=== PATIENT | female | born 1950 ===

== ENCOUNTER 2020-05-28 18:44 | Inpatient (IN) | payer MEDICARE, MEDICAID ==
[~2020-05-28] VITALS: Ht 157.5 cm; Wt 63.5 kg
[2020-05-29 01:05] VITALS: BP 125/60; BMI 25.6
--- NOTE | 2020-05-29 02:52 | NUR ---
SLEEPING WITH RESPIRATIONS UNLABORED. NO DISTRESS NOTED.
[2020-05-29] MEDS ORDERED: TEMAZEPAM30 MG PO (02:59)
[2020-05-29] MEDS ORDERED: INDERAL LA80 MG PO (03:03)
[2020-05-29] MEDS ORDERED: PROAIR HFA8.5 G1 INH (03:05)
[2020-05-29] MEDS ORDERED: NEURONTIN600 MG PO (03:06)
[2020-05-29] MEDS ORDERED: PROTONIX20 MG PO (03:08)
[2020-05-29] MEDS ORDERED: DULERA 200 MCG8.8 GM INH (03:11)
[2020-05-29] MEDS ORDERED: OXYCONTIN10 MG PO (03:12)
[2020-05-29] MEDS ORDERED: VALIUM5 MG PO (03:14)
[2020-05-29] MEDS ORDERED: TRELEGY ELLIPT1 EACH INH (03:15)
[2020-05-29] MEDS ORDERED: DULCOLAX STOOL100 MG PO (03:15)
[2020-05-29] MEDS ORDERED: NORVASC10 MG PO (03:17)
[2020-05-29] MEDS ORDERED: MIRALAX17 GM PO (03:18)
[2020-05-29] MEDS ORDERED: [UNRECOGNIZED DRUG - OTHER] INH (03:19)
[2020-05-29] MEDS ORDERED: PROVENTIL/2.5 MG/3 M INH (03:20)
--- NOTE | 2020-05-29 05:20 | NUR ---
QUIET HOURS. RESTED WELL. RESPIRATIIONS UNLABORED. NO DISTRESS NOTED. OMARI PATENT. CALL LIGHT IN REACH.
[2020-05-29 06:05] LABS: BILIRUBIN NEGATIVE (NEGATIVE); GLUCOSE NEGATIVE (NEGATIVE); KETONE NEGATIVE (NEGATIVE); NITRITE POSITIVE (NEGATIVE); UROBILINOGEN NORMAL (NORMAL)
[2020-05-29 06:07] LABS: CALC OSMOLALITY 279 mosm/kg (275-300); CALCIUM 8.1 mg/dL (8.5-10.1); CARBON DIOXIDE 29.4 mmol/L (21.0-32.0); CHLORIDE - SERUM 107 mmol/L (98-107); CREATININE - SERUM 0.6 mg/dL (0.6-1.3); GLUCOSE 112 mg/dL (74-106); POTASSIUM - SERUM 3.4 mmol/L (3.5-5.1); SODIUM 139 mmol/L (136-145); UREA NITROGEN 15 mg/dL (7-18); eGFR NON AFRICAN AMERICAN > 90 mL/min (90-120)
[2020-05-29 06:07] LABS: BACTERIA MODERATE /hpf (NEGATIVE); EPITHELIAL CELLS 0-5 /hpf (0-5); RED CELLS - URINE 0-5 /hpf (0-5); WHITE CELLS - URINE 0-5 /hpf (NEGATIVE)
[2020-05-29 06:49] LABS: HEMATOCRIT 23.3 % (36.0-48.0); HEMOGLOBIN 7.6 g/dL (12-16); LYMPHOCYTES 44.2 % (15-50); MCH 31.8 pg (26.0-34.0); MCHC 32.6 g/dL (31.0-37.0); MCV 97.5 fL (80.0-100.0); MEAN PLATELET VOLUME 8.9 fL (7.4-10.4); PLATELET COUNT 393 10x3/uL (130-400); RBC 2.39 10x6/uL (4.00-5.40); RDW 16.5 % (11.5-14.5); WBC 6.4 10x3/uL (4.8-10.8)
--- NOTE | 2020-05-29 07:20 | NUR ---
RESTING WITH EYES CLOSED. RESP EVEN AND UNLABORED WITH NO DISTRESS NOTED. OPENS EYES TO NAME AND IS A/OX3. DENIES ANY PAIN AND NO REQUESTS VOICED. SIDERAILS UP X 2, CALL LIGHT AND FLUIDS IN REACH, BED IN LOW LOCKED POSITION. SALCIDO PATENT AND DRAINING SLIGHTLY CLOUDY YELLOW URINE.
--- NOTE | 2020-05-29 07:31 | NUR ---
A/A/OX4. ASSISTED TO BATHROOM VIA W/C AND TOLERATED WELL. REMAINS UP IN W/C FOR BREAKFAST. NO APPARENT NEW PROBLEMS. CALL LIGHT AND FLUIDS PLACED IN REACH. NO REQUESTS VOICED AND DENIES ANY PAIN. RESP EVEN AND UNLABORED ON RA WITH NO DISTRESS NOTED.
[2020-05-29 09:12] VITALS: BP 105/52
--- NOTE | 2020-05-29 14:40 | NUR ---
WHEN PT WAS ASSISTED TO STANDING POSITION AT SIDE OF BED, HAD LARGE STOOL INCONTINENT AND PT WAS UNAWARE OF THIS. HAS NO SENSATION OF NEEDING TO PASS STOOL.
--- NOTE | 2020-05-29 15:20 | NUR ---
RESTING WITH EYES CLOSED. OPENS EYES TO NAME. DENIES ANY PAIN AT THIS TIME AND NO REQUESTS VOICED. SIDERAILS UP X 2, CALL LIGHT AND FLUIDS IN REACH, BED IN LOW LOCKED POSITION. SALCIDO PATENT AND DRAINING LIGHT YELLOW SLIGHTLY CLOUDY URINE.
[2020-05-29 16:30] VITALS: Ht 157.5 cm; Wt 63.5 kg
--- NOTE | 2020-05-29 19:45 | NUR ---
PATIENT RECEIVED SITTING UP IN BED. ASSESSMENT & VITAL SIGNS DONE. NO C/O PAIN OR DISTRESS. BED LOW. ALARM ON. CALL LIGHT WITHIN REACH. WILL CONTINUE TO MONITOR.
[2020-05-29 20:08] VITALS: BP 95/54
[2020-05-29 22:45] VITALS: BP 117/68
--- NOTE | 2020-05-30 00:35 | NUR ---
PATIENT EYES CLOSED. RESPIRATIONS 18 & EVEN. SALCIDO PATENT WITH YELLOW COLOR URINE. BED LOW. ALARM ON. CALL [facility] WITHIN REAACH. WILL CONTINUE TO MONITOR.
--- NOTE | 2020-05-30 03:44 | NUR ---
PATIENT EYES CLOSED. RESPIRATIONS 18 & EVEN. BED LOW. ALARM ON. CALL LIGHT WITHIN REACH. WILL CONTINUE TO MONITOR.
--- NOTE | 2020-05-30 08:15 | NUR ---
SITTING UP IN BED EATING BREAKFAST, DENIES ANY NEEDS AT THIS TIME, C/L AND FLUIDS IN REACH.
[2020-05-30 08:18] VITALS: BP 97/57
--- NOTE | 2020-05-30 12:00 | NUR ---
UP IN W/C EATING LUNCH, DENIES ANY NEEDS AT THIS TIME, C/L AND FLUIDS IN REACH.
--- NOTE | 2020-05-30 16:30 | NUR ---
RESTING IN BED, BARBRA CARE AND SALCIDO CARE GIVEN, DRESSING ON BACK CHANGED, NITHYA INTACT, NO S/S OF INFECTION NOTED, STAT LOCK FOR SALCIDO CHANGED, DENIES ANY OTHER NEEDS AT THIS TIME, C/L AND FLUIDS IN REACH.
[2020-05-30 19:25] VITALS: BP 126/69
--- NOTE | 2020-05-30 19:30 | NUR ---
PATIENT RECEIVED SITTING UP IN BED. SON AT BEDSIDE. ASSESSMENT & VITAL SIGNS DONE. NO C/O PAIN OR DISTRESS. BED LOW. ALARM ON. CALL LIGHT WITHIN REACH. WILL CONTINUE TO MONITOR.
--- NOTE | 2020-05-31 00:04 | NUR ---
I have reviewed this patient and I concur with the Shift Assessment completed by the Licensed Practical Nurse today this shift.
--- NOTE | 2020-05-31 06:12 | NUR ---
PATIENT HAD 1800 CLEAR YELLOW URINE OUTPUT IN SALCIDO. PADS CLEAN & DRY. BED LOW. CALL LIGHT WITHIN REACH. WILL CONTINUE TO MONITOR.
--- NOTE | 2020-05-31 08:06 | NUR ---
SITTING UP IN BED EATING BREAKFAST, PRN PAIN MED GIVEN, DENIES ANY OTHER NEEDS AT THIS TIME, C/L AND FLUIDS IN REACH.
--- NOTE | 2020-05-31 12:16 | NUR ---
SITTING UP IN BED EATING LUNCH, SON IN ROOM, DENIES ANY NEEDS AT THIS TIME, C/L AND FLUIDS IN REACH.
--- NOTE | 2020-05-31 15:59 | NUR ---
RESTING IN BED WITH EYES CLOSED, RESP EVEN AND UNLABORED, NO S/S OF DISTRESS NOTED, C/L AND FLUIDS IN REACH.
--- NOTE | 2020-05-31 17:16 | NUR ---
I have reviewed this patient and I concur with the Shift Assessment completed by the Licensed Practical Nurse today this shift.
[2020-05-31 19:24] VITALS: BP 97/51
--- NOTE | 2020-06-01 03:01 | NUR ---
I have reviewed this patient and I concur with the Shift Assessment completed by the Licensed Practical Nurse today this shift.
[2020-06-01 05:48] LABS: BASOPHILS 0.2 % (0-2); EOSINOPHILS 3.5 % (0-7); HEMATOCRIT 23.9 % (36.0-48.0); HEMOGLOBIN 7.6 g/dL (12-16); IMMATURE GRANULOCYTES 0.9 % (0-5); LYMPHOCYTES 37.8 % (15-50); MCHC 31.8 g/dL (31.0-37.0); MCV 97.6 fL (80.0-100.0); MEAN PLATELET VOLUME 8.7 fL (7.4-10.4); MONOCYTES 9.9 % (2-11); NEUTROPHILS 47.7 % (40-80); PLATELET COUNT 336 10x3/uL (130-400); RBC 2.45 10x6/uL (4.00-5.40); RDW 16.2 % (11.5-14.5); WBC 4.3 10x3/uL (4.8-10.8)
[2020-06-01 06:08] LABS: CALC OSMOLALITY 273 mosm/kg (275-300); CALCIUM 8.2 mg/dL (8.5-10.1); CARBON DIOXIDE 29.8 mmol/L (21.0-32.0); CHLORIDE - SERUM 105 mmol/L (98-107); CREATININE - SERUM 0.7 mg/dL (0.6-1.3); GLUCOSE 105 mg/dL (74-106); POTASSIUM - SERUM 3.8 mmol/L (3.5-5.1); SODIUM 137 mmol/L (136-145); UREA NITROGEN 13 mg/dL (7-18); eGFR NON AFRICAN AMERICAN 87 mL/min (90-120)
--- NOTE | 2020-06-01 07:47 | NUR ---
PT RESTING IN BED WITH EYES OPEN CALL LIGHT IN REACH WILL MONITER
--- NOTE | 2020-06-01 11:32 | NUR ---
PATIENT IS A CLIENT OF [employer]. DME AT HOME IS A WALKER AND HER PCP IS GREGORIO BROUSSARD AP[facility] . WILL CONTINUE TO FOLLOW WITH PATIENT.
--- NOTE | 2020-06-01 12:44 | NUR ---
Nutrition Follow-up: Diet: Regular PO intake: 75-100% x last 6 meals. She reports that her appetite is fine if she gets the foods the foods that she wants. States that she can only eat light stuff like salads and sandwiches. Last BM: 05/30/20. WT: 140# (05/29/20) Meds noted: K-dur, miralax. Labs reviewed Skin: open area to R buttocks Recommend continue current diet and honor food preferences/request. RD following.
[2020-06-01 14:53] VITALS: BP 116/60
--- NOTE | 2020-06-01 16:52 | RHP ---
PATIENT: MAKAYLA UMANA MEDICAL RECORD: [id number] ACCOUNT: [id number] LOCATION:[facility] : 48 ADMISSION DATE: 05/28/20 REHABILITATION HISTORY AND PHYSICAL EXAMINATION POST ADMISSION PHYSICIAN EXAMINATION ADMITTING DIAGNOSIS: Lumbar stenosis and severe lumbar degenerative disk disease. HISTORY OF PRESENT ILLNESS: The patient is admitted to the hospital for spinal cord dysfunction. She is a 70-year-old female patient admitted to hospital with chronic pain and underwent a lumbar laminectomy, discectomy, and fusion on 05/20/2020. The patient has pretty severe problems at L3-L4 and L4-L5. On 05/23/2020, she had increased numbness to her lower extremities and underwent a TLIF of L3-L5, lumbar exploration and hematoma evacuation. She has had improvement of her symptoms on 05/25, she had a history of some hypotension. She has been seen by hematology secondary to some anemia. She has got chronic pancytopenia. She has declined blood products secondary to mandaen practices. She continues to be on Aranesp and check ferritin levels as needed. She is asymptomatic. She has had a Cabral catheter placed secondary to urinary retention. She has gotten both occupational and physical therapy during her acute stay. She states she has poor sensation in her lower extremities. The patient is in need to be monitored closely for any neurological changes, recent spinal surgery, has signs of anemia, low H&H. She has got refusal of any blood products secondary to mandaen preferences. She has got a surgical wound to her back. She has been monitoring her I's and O's, monitoring her Cabral. She is on steroids. She is getting respiratory therapy secondary to COPD, monitoring for any signs of low blood sugars. We are watching for any signs of problems with any type of anticoagulation, pain control. She has got weakness, proximal muscle deficits, decreased activity tolerance, impaired mobility, decreased range of motion. She has got limited safety awareness. She has got risk for falls and cues for equipment, low endurance. She has got inability to care for herself and self-care deficits. These are all barriers to her discharge home. Lives at home with some part-time caregiver. She is independent with ADLs and mobility prior to this. She is currently set up for max assist for ADLs, mod to max assist for mobility with use of rolling walker. Would like to return home at her prior level of functioning or better. COMORBIDITIES: Include weakness, aseptic meningitis, osteopenia, hypertension, monoclonal gammopathy of unknown significance. She has got insomnia, enteritis, pancreatitis, colitis, nausea, vomiting, chronic back pain. She is declining any blood products secondary to mandaen preferences. PAST MEDICAL HISTORY: Significant for asthma, COPD, degenerative disk disease, hypertension, lupus. PAST SURGICAL HISTORY: She has got a history of tubal ligation as far as surgery diaz. She has had colonoscopy with biopsies and EGD. ALLERGIES: No known drug allergies. CURRENT MEDICATIONS: Include MiraLax 17 grams in 8 ounces of water daily. She is on Colace 100 mg b.i.d., amlodipine 10 mg daily, Perforomist 20 mcg b.i.d., Atrovent 0.5 mg b.i.d., she is on budesonide 0.5 mg b.i.d., Protonix 40 mg daily, she is on Restoril 30 mg at bedtime, propranolol 80 mg b.i.d., OxyIR 10 HISTORY AND PHYSICAL [id number] DONG,MAKAYLA A mg every 4 hours p.r.n., Ventolin updrafts, Neurontin 600 mg t.i.d. and Valium 5 mg every 8 hours p.r.n. HABITS: No alcohol or tobacco use. FAMILY HISTORY: Noncontributory. SOCIAL HISTORY: The patient hopes to return back home and get back to her prior level of functioning. REVIEW OF SYSTEMS: GENERAL: Does complain of weakness and fatigue. HEENT: Denies cold, cough, or congestion. CARDIOVASCULAR: Denies any chest pain. PHYSICAL EXAMINATION: VITAL SIGNS: Stable, afebrile. GENERAL: A well-developed female in no distress upon exam. HEENT: Normocephalic and atraumatic. Mucosa moist. NECK: Supple. No lymphadenopathy. LUNGS: Clear at this time with no wheezing or rales. HEART: Regular rate and rhythm. No murmurs, rubs, or gallops. ABDOMEN: Soft, benign and nondistended. Positive bowel sounds times 4. EXTREMITIES: No clubbing, cyanosis or edema. NEUROLOGIC: She does have proximal muscle weakness. LABORATORY DATA: Her admit UA was positive for nitrites and also moderate bacteria. Her white count is 6.4, H&H of 7.6 and 23.3, platelet count is noted to be 393. Her sodium is 139, potassium 3.4. BUN and creatinine of 15 and 0.6 and blood sugar was noted to be 112. ASSESSMENT: This is 70-year-old female patient admitted to rehab with a working diagnosis of lumbar stenosis status post surgery. The patient has potential to make improvement. We instituted the following multidisciplinary therapies include, but not limited to physical, occupational, respiratory, speech, nutritional services, prosthetics and orthotics. Given her complex medical condition and risks for more complications, rehabilitation services cannot be provided at a low level of care such as skilled nurse facility. PLAN: 1. Admit to [facility] for inpatient therapy to include the following disciplines; A. Physical therapy to improve gait, all transfer skills and bed mobility to a modified independent level. B. Occupational therapy to improve activities of daily living. C. Case management to help with discharge planning and placement options. D. Nutrition to assist with nutritional needs. E. Rehabilitation nursing to assist in monitoring the patient's underlying medical conditions and to assist with any type of bowel or bladder management. 2. The patient's current medication and medical care will be continued. 3. We will go ahead and replace her potassium. 4. I am going to go ahead and treat her UTI. 5. I am going to see again in the a.m. TRANSINT:[id number] Voice Confirmation ID: [id number] DOCUMENT ID: [id number] HISTORY AND PHYSICAL [id number] MAKAYLA UMANA notes whether there has been none or any medical/functional change since admission: - No change since prescreen. GISSEL attests patient continues to be appropriate for IRF: - Continues to be appropriate. OMAR MENSAH MD at 1652 CC: [id number] DICTATION DATE: 05/29/20 0927 BUSINESS CONTINUITY COORDINATOR: 05/29/20 1133 ADM IN [facility] [address] [id number]
[2020-06-01] MEDS ORDERED: ASPIRIN325 MG PO (17:32)
[2020-06-01] MEDS ORDERED: ACETAMINOPHEN325 MG PO (17:32)
[2020-06-01] MEDS ORDERED: FERROUS SULFAT325 MG PO (17:33)
[2020-06-01] MEDS ORDERED: GLIMEPIRIDE1 MG PO (17:34)
[2020-06-01] MEDS ORDERED: HYDROCODON-ACE1 EA10 PO (17:34)
[2020-06-01] MEDS ORDERED: LEVOXYL125 MCG PO (17:35)
[2020-06-01] MEDS ORDERED: MULTI-DAY VITAM1 TAB PO (17:35)
[2020-06-01] MEDS ORDERED: K-TAB10 MEQ PO (17:36)
[2020-06-01] MEDS ORDERED: OMEPRAZOLE40 MG PO (17:36)
--- NOTE | 2020-06-01 19:30 | NUR ---
AWAKE AND ALERT. RESTING IN BED WITH RESPIRAITONS UNLABORED. C/O PAIN IN BACK HEAD AND SIDE AREA. WILL MEDICATE PRN WITH HS MEDICATIONS. SEE MAR. CALL LIGHT IN REACH.
[2020-06-01 20:00] VITALS: BP 106/62
--- NOTE | 2020-06-02 01:19 | NUR ---
SLEEPING WITH RESPIRATIONS UNLABORED. NO DISTRESS NOTED.
--- NOTE | 2020-06-02 06:48 | NUR ---
QUIET HOURS. NO ACUTE CHANGES IN CONDITION THIS SHIFT. RESTING IN BED WITH NO DISTRESS NOTED.
[2020-06-02 06:53] LABS: BASOPHILS 0.2 % (0-2); EOSINOPHILS 1.9 % (0-7); HEMATOCRIT 27.1 % (36.0-48.0); HEMOGLOBIN 8.4 g/dL (12-16); IMMATURE GRANULOCYTES 0.3 % (0-5); LYMPHOCYTES 24.7 % (15-50); MCH 30.4 pg (26.0-34.0); MCV 98.2 fL (80.0-100.0); MEAN PLATELET VOLUME 8.7 fL (7.4-10.4); MONOCYTES 9.9 % (2-11); PLATELET COUNT 350 10x3/uL (130-400); RBC 2.76 10x6/uL (4.00-5.40); RDW 16.2 % (11.5-14.5)
[2020-06-02 07:04] LABS: WBC 6.2 10x3/uL (4.8-10.8)
[2020-06-02 07:29] LABS: CALC OSMOLALITY 283 mosm/kg (275-300); CALCIUM 8.6 mg/dL (8.5-10.1); CARBON DIOXIDE 30.6 mmol/L (21.0-32.0); CHLORIDE - SERUM 107 mmol/L (98-107); CREATININE - SERUM 0.7 mg/dL (0.6-1.3); GLUCOSE 96 mg/dL (74-106); POTASSIUM - SERUM 4.1 mmol/L (3.5-5.1); SODIUM 142 mmol/L (136-145); UREA NITROGEN 15 mg/dL (7-18); eGFR NON AFRICAN AMERICAN 87 mL/min (90-120)
[2020-06-02 08:00] VITALS: BP 117/67
--- NOTE | 2020-06-02 08:00 | NUR ---
SHIFT ASSMT COMPLETED.CL IN REACH.
--- NOTE | 2020-06-02 12:00 | NUR ---
EATING LUNCH.SITTING UP AT BEDSIDE.
--- NOTE | 2020-06-02 16:10 | NUR ---
CLINICAL UPDATES FAXED TO [facility], MATTHEW MCDONALD AT [phone], AUTH. #[id number] WITH CONFORMATION RECIEVED.
--- NOTE | 2020-06-02 19:54 | NUR ---
AWAKE AND ALERT. RESTING IN BED WITH RESPIRAITONS UNLABORED. DRESSING INTACT TO BACK. CONTINUES TO HAVE SOME PAIN. ALSO C/O CONSTIPATION. WILL REVIEW MEDICATIONS. CALL LIGHT IN REACH.
[2020-06-02 20:00] VITALS: BP 93/51
--- NOTE | 2020-06-03 01:20 | NUR ---
RESTING IN BED WITH EYES CLOSED AND RESPRIAITONS UNLABORED. NO DISTRESS NOTED.
--- NOTE | 2020-06-03 02:31 | NUR ---
SLEEPING WITH RESPIRAITONS UNLABORED. NO DISTRESS NOTED.
--- NOTE | 2020-06-03 06:04 | NUR ---
QUIET HOURS. NO ACUTE CHANGES IN CONDITION THIS SHIFT. RESTING IN BED WITH RESPIRATIONS UNLABORED. OMARI PATENT. NO DISTRESS NOTED. CALL LIGHT IN REACH.
[2020-06-03 08:00] VITALS: BP 123/64
[2020-06-03 08:48] LABS: BASOPHILS 0.4 % (0-2); EOSINOPHILS 0.9 % (0-7); HEMATOCRIT 23.9 % (36.0-48.0); HEMOGLOBIN 7.6 g/dL (12-16); IMMATURE GRANULOCYTES 0.4 % (0-5); LYMPHOCYTES 21.4 % (15-50); MCHC 31.8 g/dL (31.0-37.0); MCV 97.6 fL (80.0-100.0); MEAN PLATELET VOLUME 8.9 fL (7.4-10.4); MONOCYTES 10.9 % (2-11); PLATELET COUNT 350 10x3/uL (130-400); RBC 2.45 10x6/uL (4.00-5.40); RDW 15.9 % (11.5-14.5); WBC 5.6 10x3/uL (4.8-10.8)
[2020-06-03 09:07] LABS: CALC OSMOLALITY 277 mosm/kg (275-300); CALCIUM 8.3 mg/dL (8.5-10.1); CARBON DIOXIDE 30.9 mmol/L (21.0-32.0); CHLORIDE - SERUM 105 mmol/L (98-107); CREATININE - SERUM 0.7 mg/dL (0.6-1.3); GLUCOSE 104 mg/dL (74-106); POTASSIUM - SERUM 3.9 mmol/L (3.5-5.1); SODIUM 139 mmol/L (136-145); UREA NITROGEN 12 mg/dL (7-18); eGFR NON AFRICAN AMERICAN 87 mL/min (90-120)
--- NOTE | 2020-06-03 09:26 | NUR ---
Nutrition Follow-up: Diet: Regular PO intake: 75-100% Last BM: 05/30/20. WT: 140# (05/29/20) Meds noted: k-dur, miralax, dulcolax (PRN). Labs reviewed. Skin: surgical back wound now with drainage, open area to R buttocks Recommend continue current diet. May consider Kush for nutritionally aided wound healing. RD following.
--- NOTE | 2020-06-03 13:58 | NUR ---
CARE TEAM MEETING: PATIENT IS PROGRESSING IN THERAPY. AT THIS TIME HER TENATIVE DISCHARGE DATE IS 06/09/20. HER INSURANCE HAS APPROVED DAYS THROUGH THE . WILL CONTINUE TO FOLLOW WITH PATIENT.
--- NOTE | 2020-06-03 19:15 | NUR ---
RECEIVED PT LYING IN BED ON LEFT SIDE AWAKE. C/O MILD DISCOMFORT MID/LOWER BACK. PAIN MEDICATION REQUESTED WITH HS MEDS. NO SIGNS OF ACUTE DISTRESS NOTED. SALCIDO PATENT FREE FROM KINKS. CALL LIGHT AND WATER WITHIN REACH. FALL PRECAUTIONS IN PLACE. CPOC
[2020-06-03 21:15] VITALS: BP 118/65
--- NOTE | 2020-06-03 23:19 | NUR ---
QUIET HOURS. PT LYING IN BED ON RIGHT SIDE EYES CLOSED RESTING QUIETLY. RR EVEN AND UNLABORED. CALL LIGHT WITHIN REACH. FALL PRECAUTIONS IN PLACE. CPOC
--- NOTE | 2020-06-04 02:07 | NUR ---
PT LYING IN BED ON LEFT SIDE EYES CLOSED RESTING. RR EVEN AND UNLABORED. CALL LIGHT WITHIN REACH. CPOC
--- NOTE | 2020-06-04 04:50 | NUR ---
REPOSITIONED PT IN BED TO LEFT SIDE PROPPED WITH PILLOWS. NO OTHER NEEDS VOICED. NO ACUTE CHANGES IN CONDITION NOTED THIS SHIFT . CALL LIGHT WITHIN REACH. CPOC
--- NOTE | 2020-06-04 08:00 | NUR ---
SITTING UP IN BED EATING BREAKFAST, DENIES ANY NEEDS AT THIS TIME, C/L AND FLUIDS IN REACH.
[2020-06-04 09:48] VITALS: BP 93/55
--- NOTE | 2020-06-04 11:59 | NUR ---
SITTING UP IN W/C, DENIES ANY NEEDS AT THIS TIME, C/L AND FLUIDS IN REACH.
--- NOTE | 2020-06-04 16:00 | NUR ---
RESTING IN BED WATCHING TV, DENIES ANY NEEDS AT THIS TIME, C/L AND FLUIDS IN REACH.
--- NOTE | 2020-06-04 19:35 | NUR ---
RECEIVED PT LYING IN BED ON LEFT SIDE VISITING WITH SISTER. ALERT AND ORIENTED X3. DENIES ANY PAIN OR NEEDS. SALCIDO PATENT FREE FROM KINKS. NO SIGNS OF ACUTE DISTRESS NOTED. CALL LIGHT AND WATER WITHIN REACH. FALL PRECAUTIONS IN PLACE. CPOC
[2020-06-04 21:17] VITALS: BP 88/44
--- NOTE | 2020-06-05 01:22 | NUR ---
QUIET HOURS. PT LYING IN BED ON RIGHT SIDE EYES CLOSED RESTING. RR EVEN AND UNLABORED. CALL LIGHT WITHIN REACH. FALL PRECAUTIONS IN PLACE. CPOC
--- NOTE | 2020-06-05 03:53 | NUR ---
PT LYING IN BED ON RIGHT SIDE EYES CLOSED RESTING. RR EVEN AND UNLABORED. CALL LIGHT WITHIN REACH. CPOC
--- NOTE | 2020-06-05 07:15 | NUR ---
POSITIONED ON BACK WITH EYES CLOSED, RESP EVEN AND UNLABORED ON ROOM AIR. SIDERAILS UP X 2, CALL LIGHT AND FLUIDS IN REACH, BED IN LOW LOCKED POSITION. NO APPARENT PROBLEMS NOTED.
[2020-06-05 07:25] LABS: BASOPHILS 0.3 % (0-2); EOSINOPHILS 2.3 % (0-7); HEMATOCRIT 23.1 % (36.0-48.0); IMMATURE GRANULOCYTES 0.3 % (0-5); LYMPHOCYTES 29.5 % (15-50); MCH 31.1 pg (26.0-34.0); MCV 97.1 fL (80.0-100.0); MEAN PLATELET VOLUME 8.6 fL (7.4-10.4); NEUTROPHILS 53.6 % (40-80); RBC 2.38 10x6/uL (4.00-5.40); RDW 15.8 % (11.5-14.5)
[2020-06-05 07:39] LABS: CALC OSMOLALITY 274 mosm/kg (275-300); CALCIUM 8.3 mg/dL (8.5-10.1); CARBON DIOXIDE 29.7 mmol/L (21.0-32.0); CHLORIDE - SERUM 107 mmol/L (98-107); CREATININE - SERUM 0.6 mg/dL (0.6-1.3); GLUCOSE 106 mg/dL (74-106); POTASSIUM - SERUM 3.4 mmol/L (3.5-5.1); SODIUM 138 mmol/L (136-145); UREA NITROGEN 10 mg/dL (7-18); eGFR NON AFRICAN AMERICAN > 90 mL/min (90-120)
[2020-06-05 07:48] LABS: HEMOGLOBIN 7.4 g/dL (12-16); PLATELET COUNT 271 10x3/uL (130-400); WBC 3.4 10x3/uL (4.8-10.8)
--- NOTE | 2020-06-05 08:30 | NUR ---
ASST PT UP TO BATHROOM STATES SHE FELT LIKE SHE NEEDED TO HAVE BM. WAS UNABLE TO HOLD IT UNTIL SHE GO IN TO THE BATHROOM. PT CLEANED AND PAJAMAS CHANGED.
[2020-06-05 11:24] VITALS: BP 140/89
--- NOTE | 2020-06-05 19:30 | NUR ---
AWAKE AND ALERT. RESTING IN BED WITH NO DISTRESS NOTED. SALCIDO PATENT. DRESSING INTACT TO BACK. CALL LIGHT IN REACH.
[2020-06-05 20:08] VITALS: BP 114/69
--- NOTE | 2020-06-06 00:10 | NUR ---
RESTING IN BED WITH RESPIRAITONS UNLABORED. NO DISTRESS NOTED. CALL LIGHT IN REACH.
--- NOTE | 2020-06-06 05:08 | NUR ---
QUIET HOURS. NO ACUTE CHANGES IN CONDITION THIS SHIFT. RESTING IN BED WITH NO DISTRESS NOTED. CALL LIGHT IN REACH.
[2020-06-06 08:00] VITALS: BP 101/59
--- NOTE | 2020-06-06 08:00 | NUR ---
SHIFT ASSMT COMPLETED
--- NOTE | 2020-06-06 19:30 | NUR ---
AWAKE AND ALERT. RESTING IN BED WITH RESPIRAITONS UNLABORED. OMARI PATENT. NO DISTRESS NOTED. CALL LIGHT IN REACH.
[2020-06-06 20:28] VITALS: BP 104/54
--- NOTE | 2020-06-07 04:58 | NUR ---
QUIET HOURS. NO ACUTE CHANGES IN CONDITION THIS SHIFT. SALCIDO PATENT. NO DISTRESS NOTED.
--- NOTE | 2020-06-07 08:00 | NUR ---
SHIFT ASSMT COMPLETED.
[2020-06-07 19:26] VITALS: BP 99/56
--- NOTE | 2020-06-07 20:02 | NUR ---
AWAKE AND ALERT. RESTING IN BED WITH RESPIRAITONS UNLABORED. MEDICATED FOR PAIN. SEE MAR. SALCIDO PATENT. DRESSING INTACT TO BACK. CALL LIGHT IN REACH.
--- NOTE | 2020-06-08 00:56 | NUR ---
INCONTINENCE CARE GIVEN. REPOSITIONED IN BED. MEDICATED FOR PAIN AND SLEEP SEE MAR. RESPIRATIONS UNLABORED. CALL LIGHT IN REACH.
--- NOTE | 2020-06-08 00:58 | NUR ---
RESTING IN BED WITH RESPIRATIONS UNLABORED. NO DISTRESS NOTED.
--- NOTE | 2020-06-08 06:10 | NUR ---
QUIET HOURS. NO ACUTE CHANGES IN CONDITION THIS SHIFT. SALCIDO PATENT. DRESSING INTACT TO LOWER BACK.
[2020-06-08 06:18] LABS: BASOPHILS 0.7 % (0-2); HEMATOCRIT 24.4 % (36.0-48.0); HEMOGLOBIN 7.6 g/dL (12-16); IMMATURE GRANULOCYTES 0.3 % (0-5); LYMPHOCYTES 36.1 % (15-50); MCH 30.5 pg (26.0-34.0); MCHC 31.1 g/dL (31.0-37.0); MEAN PLATELET VOLUME 8.8 fL (7.4-10.4); MONOCYTES 11.4 % (2-11); NEUTROPHILS 48.5 % (40-80); RBC 2.49 10x6/uL (4.00-5.40); RDW 15.6 % (11.5-14.5)
[2020-06-08 06:22] LABS: CALC OSMOLALITY 277 mosm/kg (275-300); CALCIUM 8.1 mg/dL (8.5-10.1); CARBON DIOXIDE 28.6 mmol/L (21.0-32.0); CHLORIDE - SERUM 109 mmol/L (98-107); CREATININE - SERUM 0.6 mg/dL (0.6-1.3); GLUCOSE 91 mg/dL (74-106); SODIUM 140 mmol/L (136-145); UREA NITROGEN 10 mg/dL (7-18); eGFR NON AFRICAN AMERICAN > 90 mL/min (90-120)
[2020-06-08 06:58] LABS: PLATELET COUNT 206 10x3/uL (130-400)
--- NOTE | 2020-06-08 07:35 | NUR ---
ALERT AND ORIENTED. NO C/O PAIN. CL IN REACH.
[2020-06-08 07:52] VITALS: BP 153/68
--- NOTE | 2020-06-08 12:22 | NUR ---
NO CHANGE IN ASSESSMENT. IN ROOM WITH FAMILY AT BS. CL IN REACH.
--- NOTE | 2020-06-08 13:13 | NUR ---
Nutrition Follow-up: Diet: Regular PO intake: ~63% average x last 4 meals. She states that her appetite is "alright." States that she would like Boost with breakfast tray and Chocolate Ensure with lunch tray. Last BM: 06/05/20. WT: 140# (05/29/20) Meds noted: K-dur, miralax. Labs noted. Skin: surgical wound on back Recommend continue current diet. Will update oral nutrition supplement request in diet order. RD following.
--- NOTE | 2020-06-08 13:37 | NUR ---
SHOWER PER OT. MEPIPLEX PLACED ON BUTTOCKS (OPEN AREAS ON R BUTT CHEEK). PATIENT LEAKS BM AND IS UNAWARE OF WHEN SHE HAS BM. CONSULTED WOUND CARE.
--- NOTE | 2020-06-08 14:32 | NUR ---
PATIENTS SON (IN [facility]) AND DAUGHTER VERY CONCERNED REGARDING MOTHERS PROGRESS IN THERAPY. THEY ARE WANTING ANSWERS FAR WHY SHE CAN'T TELL WHEN SHE NEEDS TO USE THE BATHROOM AMD WHY SHE IS NOT WALKING WELL. LUCY John NURSE BABY DOCTOR SPOKE WITH DAUGHTER AND CALLED DR. PENA OFFICE. IN THE MEAN TIME PATIENTS SON IN [facility] CALLS VERY UPSET AND WANTING ANSWERS. I TOLD HIM THAT I WOULD TAKE HIS NUMBER AND ASK DR. MENSAH TO GIVE HIM A CALL THAT I COULD NOT ANWSER HIS QUESTIONS. (SON). WILL CONTINUE TO FOLLOW WITH PATIENT.
--- NOTE | 2020-06-08 15:56 | NUR ---
NO CHANGE IN ASSESSMENT. DAUGHTER IN ROOM. NO C/O PAIN. CL IN REACH.
--- NOTE | 2020-06-08 19:20 | NUR ---
RECEIVED PT SITTING UP IN BED AWAKE. ALERT AND ORIENTED X3. ASSISTED TO RESTROOM WITH MOD ASSIST. SALCIDO CATH PATENT FREE FROM KINKS. INSTRUCTED TO PULL NURSE CORD WHEN FINISHED. PT RETURNED DEMOSTRATION ON PULLING CORD FOR ASSISTANCE. CPOC
[2020-06-08 20:35] VITALS: BP 96/69
--- NOTE | 2020-06-09 00:50 | NUR ---
PT LYING IN BED ON LEFT SIDE EYES CLOSED RESTING. RR EVEN AND UNLABORED. CALL LIGHT WITHIN REACH. FALL PRECAUTIONS IN PLACE. CPOC
--- NOTE | 2020-06-09 03:38 | NUR ---
PT LYING IN BED ON LEFT SIDE EYES CLOSED RESTING. RR EVEN AND UNLABORED. CALL LIGHT WITHIN REACH. FALL PRECAUTIONS IN PLACE. CPOC
--- NOTE | 2020-06-09 06:10 | NUR ---
REPOSITIONED PT TO RIGHT SIDE. DENIES ANY PAIN OR NEEDS. SALCIDO EMPTIED 400ML. CALL LIGHT WITHIN REACH. FALL PRECAUTIONS IN PLACE. CPOC
[2020-06-09 07:41] VITALS: BP 96/53
--- NOTE | 2020-06-09 14:05 | NUR ---
CLINICAL UPDATES FAXED TO MATTHEW MCDONALD AT [facility] , AUTH. # [id number] REQUESTING EXTENSION OF DAYS. FAX CONFORMATION RECIEVED. WILL CONTINUE TO FOLLOW WITH PATIENT.
--- NOTE | 2020-06-09 18:45 | NUR ---
RECEIVED PT SITTING UP IN BED ALERT AND ORIENTED X4. DENIES ANY NEEDS OR PAIN. SALCIDO PATENT FREE FROM KINKS. CALL LIGHT WITHIN REACH. FALL PRECAUTIONS IN PLACE. CPOC
--- NOTE | 2020-06-09 19:54 | NUR ---
PT RUNNING TEMP 101.3 ADMINISTERED TYLENOL 650MG AND REMOVED BLANKETS. COOL COMPRESS TO HEAD PER PT REQUEST. NO SIGNS ACUTE DISTRESS NOTED. CALL LIGHT WITHIN REACH. CPOC
[2020-06-09 21:24] VITALS: BP 113/52
--- NOTE | 2020-06-10 02:05 | NUR ---
PT LYING IN BED ON LEFT SIDE EYES CLOSED RESTING. RR EVEN AND UNLABORED. CALL LIGHT WITHIN REACH. FALL PRECAUTIONS IN PLACE. CPOC
[2020-06-10 07:03] LABS: CALC OSMOLALITY 281 mosm/kg (275-300); CALCIUM 8.2 mg/dL (8.5-10.1); CARBON DIOXIDE 27.4 mmol/L (21.0-32.0); CHLORIDE - SERUM 109 mmol/L (98-107); CREATININE - SERUM 0.6 mg/dL (0.6-1.3); GLUCOSE 92 mg/dL (74-106); SODIUM 142 mmol/L (136-145); UREA NITROGEN 10 mg/dL (7-18); eGFR NON AFRICAN AMERICAN > 90 mL/min (90-120)
[2020-06-10 07:30] LABS: MCH 30.3 pg (26.0-34.0); MCHC 31.1 g/dL (31.0-37.0); MCV 97.4 fL (80.0-100.0); MEAN PLATELET VOLUME 8.9 fL (7.4-10.4); PLATELET COUNT 165 10x3/uL (130-400); RDW 15.6 % (11.5-14.5); WBC 2.6 10x3/uL (4.8-10.8)
[2020-06-10 07:32] LABS: HEMOGLOBIN 5.9 g/dL (12-16); RBC 1.95 10x6/uL (4.00-5.40)
[2020-06-10] MEDS ORDERED: PROPRANOLOL HCL60 MG PO (07:37)
[2020-06-10] MEDS ORDERED: NORVASC5 MG PO (07:37)
--- NOTE | 2020-06-10 07:58 | NUR ---
I have reviewed this patient and I concur with the Shift Assessment completed by the Licensed Practical Nurse today this shift.
[2020-06-10 08:02] LABS: BASOPHILS 1 % (0-2); EOSINOPHILS 4 % (0-7); LYMPHOCYTES 52 % (15-50); MONOCYTES 3 % (2-11); NEUTROPHILS 37 % (40-80)
[2020-06-10 08:03] LABS: PLATELET ESTIMATE NORMAL; ROULEAUX OCC
[2020-06-10 08:04] LABS: TARGET CELLS OCC
--- NOTE | 2020-06-10 08:15 | NUR ---
SITTING UP IN BED EATING BREAKFAST, DENIES ANY NEEDS AT THIS TIME, C/L AND FLUIDS IN REACH.
[2020-06-10 08:24] VITALS: BP 100/43
--- NOTE | 2020-06-10 12:00 | NUR ---
SITTING UP IN W/C EATING LUNCH, DENIES ANY NEEDS AT THIS TIME, C/L AND FLUIDS IN REACH.
[2020-06-10] MEDS ORDERED: COLACE100 MG PO (13:24)
[2020-06-10] MEDS ORDERED: PULMICORT0.5 MG/21 INH (13:24)
[2020-06-10] MEDS ORDERED: DIFLUCAN100 MG PO (13:25)
[2020-06-10] MEDS ORDERED: PERFOROMIS20 MCG/21 INH (13:25)
[2020-06-10] MEDS ORDERED: NEURONTIN 300300 MG PO (13:26)
[2020-06-10] MEDS ORDERED: ATROVENT 0.02%2.5 ML UPD (13:27)
[2020-06-10] MEDS ORDERED: CALMOSEPTINE OI71 GM TOPICAL (13:28)
[2020-06-10] MEDS ORDERED: INDERAL LA60 MG PO (13:29)
--- NOTE | 2020-06-10 14:40 | NUR ---
CARE TEAM MEETING: PATIENT SON ATTENDED THE MEETING. PER PATIENT AND FAMILY REQUEST THAT SHE BE DISCHARGE FROM [facility] AND ADMITTED TO [facility] WHERE HER SURGEON CAN EVALUATE HER. DISCHARGE IS NOTED AND PATIENT WILL DC TO [facility] ER. DISCHARGE CLINICALS FAXED TO MATTHEW MCDONALD AT , AUTH. # [id number] WITH CONFORMATION OF FAX.
--- NOTE | 2020-06-10 15:00 | NUR ---
ORDER RECIEVED TO DC PT. FROM REHAB. UPON DC TRANSFER VIA AMBULANCE TO [facility] FOR ADMISSION WITH CONSULT FOR DR. CLARKE NEURO.SURGEON. SPOKE WITH NELL LOBATO WHO SPOKE WITH DR. MENSAH AND INFORMED HIM OF DR. CLARKE PLAN FOR ADMISSION. I CALLED AND SPOKE WITH DR. EARL WHO IS EXPECTING PT FOR ADMISSION AND CONSULT. NOTIFIED DAUGHTER MIRELLA OF ORDERS AND SON IS PRESENT IN ROOM.
--- NOTE | 2020-06-10 16:24 | NUR ---
PT. D/C TO ANOTHER HOSPITAL VIA AMBULANCE, SON HAS ALL BELONGINGS OF PATIENTS. REVIEWED MEDICATIONS AND D/C PAPERS.
== END 2020-06-10 16:15 | DRG 551 ==
LOC: D.REHAB 18:44
PROVIDERS: ADMIT Emergency Medicine; ATTEND Emergency Medicine
DX: M48.061 Spinal stenosis, lumbar region without neurogenic claudication (principal); G03.0 Nonpyogenic meningitis; K85.90 Acute pancreatitis without necrosis or infection, unspecified; R53.1 Weakness; M85.80 Other specified disorders of bone density and structure, unspecified site; I10 Essential (primary) hypertension; G47.00 Insomnia, unspecified; R11.2 Nausea with vomiting, unspecified; G89.29 Other chronic pain; K52.9 Noninfective gastroenteritis and colitis, unspecified; J44.9 Chronic obstructive pulmonary disease, unspecified; R10.32 Left lower quadrant pain; D47.2 Monoclonal gammopathy; R33.9 Retention of urine, unspecified